=== PATIENT | male | born 1995 | race Caucasian/White ===

== ENCOUNTER 2016-11-24 04:46 | Emergency (ER) | payer OTHER ==
[~2016-11-24] VITALS: Ht 180.3 cm; Wt 90.0 kg
[2016-11-24 04:52] VITALS: Ht 180.3 cm; Wt 90.0 kg
[2016-11-24] MEDS ORDERED: ONDANSETRON (ODT) 4 MG TAB ODT STA (05:20)
[2016-11-24] MEDS ORDERED: FAMO-96 PO (05:23)
[2016-11-24] MEDS ORDERED: OMEP20CA16 PO (05:23)
[2016-11-24] MEDS ORDERED: NAPR-260 PO (05:23)
[2016-11-24] MEDS ORDERED: MELA10CA PO (05:23)
[2016-11-24] MEDS ORDERED: LIDOCAINE/MYLANTA 40 ML BTL PO ONE (05:30)
--- NOTE | 2016-11-24 05:43 | ERD ---
ER Documentation Chief Complaint Date/Time DATE: 11/24/16 TIME: 05:37 Chief Complaint numbness both hands, chest pain, can't sleep x 3 days HPI 21-year-old otherwise healthy male presents the emergency department for complaints of intermittent chest pain 3 days. Patient states that the pain has woke him up out of his sleep 2 times earlier this evening and is associated with numbness of the bilateral fingers. Patient reports a sharp 7 out of 10 localized chest pain improves when sitting upright. Patient states that 3 days ago he called 911 regarding his chest pain and was told it was due to acute anxiety. Patient states he experiences symptoms nightly since that time and reports feeling anxious once the chest pain begins then developing numbness and tingling. Patient denies any cardiac history aside from high blood pressure which was diagnosed by his primary care provider. He denies shortness of breath shortness of breath. He denies any history of sudden among his immediate family due to cardiac or pulmonary reasons. He denies any recent prolonged immobilization, surgery, calf swelling or tenderness. ROS All systems reviewed and are negative except as per history of present illness. Medications Home Meds Active Scripts Melatonin (Melatonin) 10 Mg Capsule, 10 MG PO HS for 5 Days, CAP Prov:RITA RAMOS PA-C 11/24/16 Omeprazole* (Omeprazole*) 20 Mg Capsule.dr, 20 MG PO DAILY, #14 Prov:RITA RAMOS PA-C 11/24/16 Famotidine* (Pepcid*) 20 Mg Tablet, 20 MG PO BID for 14 Days, TAB Prov:RITA RAMOS PA-C 11/24/16 Discontinued Scripts Naproxen* (Naprosyn*) 500 Mg Tablet, 500 MG PO BID for 7 Days, TAB Prov:RITA RAMOS PA-C 11/24/16 Allergies Allergies: Coded Allergies: No Known Drug Allergies (Verified Allergy, Unknown, 11/24/16) PMhx/Soc Medical and Surgical Hx: pt denies Surgical Hx History of Surgery: No Anesthesia Reaction: No Hx Neurological Disorder: No Hx Respiratory Disorders: No Hx Cardiac Disorders: No Hx Psychiatric Problems: No Hx Miscellaneous Medical Probl: Yes (anxiety) Hx Alcohol Use: No Hx Substance Use: No Hx Tobacco Use: No Smoking Status: Never smoker Physical Exam Vitals Vital Signs Date Time Temp Pulse Resp B/P Pulse Ox O2 Delivery O2 Flow Rate FiO2 11/24/16 04:52 98.3 108 20 158/79 100 Physical Exam Const: Well-developed, well-nourished, no acute distress Head: Atraumatic Eyes: Normal Conjunctiva ENT: Normal External Ears, Nose and Mouth. Neck: Full range of motion..~ No meningismus. Resp: Clear to auscultation bilaterally, no wheezes Cardio: Regular rate and rhythm, no murmurs Abd: Soft, non tender, non distended. Normal bowel sounds Skin: No petechiae or rashes Back: No midline or flank tenderness Ext: No cyanosis, or edema Neur: Awake and alert Psych: Normal Mood and Affect Results 24 hrs Current Medications Medications (Trade) Dose Ordered Sig/Constantino Route PRN Reason Start Time Stop Time Status Last Admin Dose Admin Miscellaneous Medication (Gi Cocktail (2)) 40 ml ONCE ONCE PO 11/24/16 05:30 11/24/16 05:31 DC 11/24/16 05:44 Ondansetron HCl (Zofran Odt) 4 mg ONCE STAT ODT 11/24/16 05:20 11/24/16 05:21 DC 11/24/16 05:44 Procedures/MDM This is an otherwise healthy 21-year-old male who presents the emergency department complaining at night and has been waking him up. Patient states the chest pain, with him to feel anxious and is associated with numbness and tingling in his hands. He states the pain resolves once he is upright. Patient denies any significant cardiac disease besides high blood pressure. He denies any sudden due to cardiac reasons in his immediate family. He denies any history of diabetes or high cholesterol. Patient's international heart score is currently 0. EKG: Rate/Rhythm: Normal Sinus Rhythm QRS, ST, T-waves: No changes consistent w/ acute ischemia Impression: No evidence of ischemia or arrhythmia At this time low suspicion for acute coronary syndrome, DVT or PE. At this time further diagnostic workup is not warranted however I discussed with the patient strict return precautions and instructed him to return to the ER if his symptoms continue or worsen despite medications to alleviate his symptoms. Patient symptoms likely due to acid reflux versus acute anxiety. Patient to begin Pepcid and omeprazole. Based on patient's history of present illness and physical examination the decision was made to discharge. The patient was re-evaluated after ED treatment and stabilizing measures, and symptoms have improved. There is no evidence of life threatening injuries or illnesses at this time. On re-examination, patient resting in no distress, stable vital signs, reports feeling better and safe for discharge with outpatient follow up with PMD in 1-2 days. Patient given return precautions. Departure Diagnosis: Primary Impression: Chest pain Chest pain type: unspecified Qualified Code: R07.9 - Chest pain, unspecified type Condition: Good Patient Instructions: Chest Pain, Noncardiac Additional Instructions: Call your primary care doctor TOMORROW for an appointment during the next 1-2 days.See the doctor sooner or return here if your condition worsens before your appointment time. RITA RAMOS PA-C Nov 24, 2016 05:43
[2016-11-24 05:47] VITALS: BP 138/84; PULSE 85; RESP 18
== END 2016-11-24 05:55 | disposition home or self-care (01) ==
LOC: FTE 04:46
DX: R07.9 Chest pain, unspecified (principal)
CPT/HCPCS: 93005; Z7610; 99283